=== PATIENT | male | born 1995 | race Caucasian/White ===

== ENCOUNTER → 2017-05-23 | Outpatient (CLI) | payer OTHER ==
--- NOTE | 2017-05-23 15:30 | KCIC ---
Ultrasound testicular 05/23/2017 CLINICAL INDICATION: Scrotal swelling. COMPARISON: None. FINDINGS: There is a right epididymal head cyst measuring up to 0.6 cm. Right testis measures 5.4 x 3.2 x 2.4 cm with intratesticular blood flow. Left testis measures 5.2 x 2.7 x 3.1 cm with normal intratesticular blood flow. There is a small left varicocele. There is diffuse bilateral scrotal wall thickening measuring up to 0.7 cm mild internal vascularity. IMPRESSION: 1. Diffuse scrotal wall thickening with mild increased vascularity, could be seen with cellulitis. Clinical correlation is recommended. 2. No evidence of testicular torsion or epididymal orchitis. 3. Small left varicocele. 4. Small right epididymal head cyst, likely spermatocele. Electronically signed by: Brandon Shea MD (05/23/2017 3:27 PM) [id number]
== END | disposition home or self-care (01) ==
LOC: KCIC US 14:28
PROVIDERS: ATTEND Pediatrics
DX: N50.89 Other specified disorders of the male genital organs (principal); I86.1 Scrotal varices
CPT/HCPCS: 76870